=== PATIENT | female | born 1965 | race Two or more races ===

== ENCOUNTER 2020-06-21 09:33 | Outpatient (CLI) | payer OTHER | END 2020-06-21 09:42 | disposition home or self-care (01) | LOC: NUCLEAR 09:33 | PROVIDERS: ATTEND Internal Medicine Rheumatology | DX: M06.4 Inflammatory polyarthropathy (principal) | CPT/HCPCS: 78315; A9503 ==

== ENCOUNTER 2025-04-07 07:17 | Outpatient (CLI) | payer OTHER | END 2025-04-07 07:18 | disposition home or self-care (01) | LOC: NUCLEAR 07:17 | DX: M06.9 Rheumatoid arthritis, unspecified (principal); M05.9 Rheumatoid arthritis with rheumatoid factor, unspecified ==